=== PATIENT | male | born 1960 | race Hispanic/Latino ===

== ENCOUNTER 2017-10-29 16:27 | Emergency (ER) | payer BC, OTHER ==
[2017-10-29 16:41] VITALS: BP 124/81; PULSE 92; RESP 18; TEMP 99.5; O2SAT 96
--- NOTE | 2017-10-29 17:13 | ED PDOC ---
HPI: Skin/Bite Injury Time Seen by Provider: 10/29/17 16:50 Chief Complaint (Nursing): Fever Chief Complaint (Provider): Rash History Per: Patient History/Exam Limitations: no limitations Onset/Duration Of Symptoms: Days (Wed) Current Symptoms Are (Timing): Still Present Additional Complaint(s): Pt. with back pain so he went to [facility]. Had a work up with imaging, ultrasound, labs. Nothing was found. He then went to his PCP as there was a rash on his back going to his chest on the right side. Was diagnosed with shingles and dc with valtrex, percocet. He was then given zofran as he was getting nausea after taking the valtrex and percocet the following day. He has been taking valtrex and zofran as needed with percocet sparingly. He has not vomitted. Has had diffuse body aches and joint pains for which the percocet helped, but he only took 200mg motrin with pseudoephredrine. Here as his body aches still present. Shingles pain is controlled. Has no nasuea now. No weakness, numbness, tingles, chest pain, abd pain, neck pain, headache, vision changes, leg or arm pain, fever. No dyspnea. No diarrhea. Past Medical History Reviewed: Nursing Documentation, Vital Signs Vital Signs: Last Vital Signs Temp 99.5 F 10/29/17 16:33 Pulse 92 H 10/29/17 16:33 Resp 18 10/29/17 16:33 BP 124/81 10/29/17 16:33 Pulse Ox 96 10/29/17 16:33 - Medical History PMH: No Chronic Diseases - Surgical History Surgical History: No Surg Hx - Family History Family History: States: Unknown Family Hx - Social History Alcohol: None Drugs: Denies - Home Medications Home Medications: Ambulatory Orders Medication Instructions Recorded Ibuprofen [Motrin] 600 mg PO TID 7 Days tab 10/29/17 Ondansetron [Zofran] 4 mg PO Q8H PRN #6 tab 10/29/17 - Allergies Allergies/Adverse Reactions: Allergies Allergy/AdvReac Type Severity Reaction Status Date / Time seasonal allergies Allergy FEVER Uncoded 10/29/17 16:49 Review of Systems ROS Statement: Except As Marked, All Systems Reviewed And Found Negative Gastrointestinal: Positive for: Nausea Musculoskeletal: Positive for: Other (body aches) Skin: Positive for: Rash, Lesions Physical Exam - Reviewed Nursing Documentation Reviewed: Yes Vital Signs Reviewed: Yes - Physical Exam Appears: Positive for: Non-toxic, No Acute Distress Head Exam: Positive for: ATRAUMATIC, NORMAL INSPECTION, NORMOCEPHALIC Skin: Positive for: Rash (R chest around and below nipple dermatome to the R back dermatome in a shingles pattern, mild tender: erythema with several vesicles, nonblanching.; no induration, fluctuance, or dc. ) Eye Exam: Positive for: EOMI, Normal appearance, PERRL ENT: Positive for: Normal ENT Inspection Neck: Positive for: Normal, Painless ROM Cardiovascular/Chest: Positive for: Regular Rate, Rhythm. Negative for: Edema Respiratory: Positive for: CNT, Normal Breath Sounds Gastrointestinal/Abdominal: Positive for: Soft. Negative for: Tenderness Back: Negative for: L CVA Tenderness, R CVA Tenderness Extremity: Positive for: Normal ROM. Negative for: Tenderness, Pedal Edema Neurologic/Psych: Positive for: Alert, mining captain II-XII, Oriented, Other (neg brudzinski and kernig). Negative for: Motor/Sensory Deficits, Mood/Affect, Aphasia, Facial Droop - ECG O2 Sat by Pulse Oximetry: 96 Pulse Ox Interpretation: Normal - Progress ED Course And Treament: 1715: Stable. AAOx3. Tolerates PO. No meningeal signs. Ambulated with no issues. Pt. symptoms likely shingles and medication related. Aware to return if any headache, neck pain, weakness, dizziness, or not feeling right and will need to consider getting blood work and possible lumbar puncture for meningitis/ encephalitis. Disposition - Clinical Impression Clinical Impression: Myalgia, Shingles - Patient ED Disposition Is Patient to be Admitted: No Counseled Patient/Family Regarding: Diagnosis, Need For Followup, Rx Given - Disposition Referrals: [facility] [Outside] - 10/30/17 Disposition: Routine/Home Disposition Time: 17:22 Condition: STABLE Additional Instructions: Return right away if any headache, neck pain, weakness, dizziness, or not feeling right and will need to consider getting blood work and possible lumbar puncture for meningitis/encephalitis. Prescriptions: Ibuprofen [Motrin] 600 mg PO TID 7 Days tab Ondansetron [Zofran] 4 mg PO Q8H PRN #6 tab PRN Reason: Nausea/Vomiting Instructions: Shingles (DC), Muscle and Bone Pain (DC) Forms: [facility] (Bengali), [facility] School/Work Excuse
== END 2017-10-29 17:40 | disposition home or self-care (01) ==
LOC: H.ER 16:27
DX: R50.9 Fever, unspecified (principal); B02.9 Zoster without complications; M79.1 Myalgia
CPT/HCPCS: 96372; 99282; J1885